=== PATIENT | male | born 1975 | race Caucasian/White ===

== ENCOUNTER 2018-03-17 05:25 | Emergency (ER) | payer MEDICAID ==
[~2018-03-17] VITALS: Ht 5619.3 cm; Wt 74.9 kg
[2018-03-17 11:13] VITALS: BP 141/88
[2018-03-17] MEDS ORDERED: GABA-530 PO (11:26)
== END 2018-03-17 11:28 | disposition home or self-care (01) ==
LOC: ER 05:27
DX: G40.909 Epilepsy, unspecified, not intractable, without status epilepticus (principal); R21 Rash and other nonspecific skin eruption; Z60.2 Problems related to living alone; Z56.0 Unemployment, unspecified; Z59.0 Homelessness
CPT/HCPCS: 99283